=== PATIENT | male | born 1985 | race Two or more races ===

== ENCOUNTER 2017-10-26 12:53 | Emergency (ER) | payer SELFPAY ==
[~2017-10-26] VITALS: Ht 182.9 cm; Wt 93.0 kg
[2017-10-26 13:00] VITALS: BP 168/98
[2017-10-26] MEDS ORDERED: KETOROLAC TROMETH 60MG/2ML VIAL IM ONE (16:00)
[2017-10-26] MEDS ORDERED: TETANUS-DIPTH-ACEL PERTUSSIS 0.5ML SYRG IM ONE (16:00)
[2017-10-26] MEDS ORDERED: BACITRACIN TOP OINT 1 UD PKG TOP ONE (16:45)
== END 2017-10-26 17:18 | disposition home or self-care (01) ==
LOC: ER 12:53
DX: S61.011A Laceration without foreign body of right thumb without damage to nail, initial encounter (principal); W54.0XXA Bitten by dog, initial encounter; Y93.89 Activity, other specified; Y92.89 Other specified places as the place of occurrence of the external cause; Y99.8 Other external cause status
CPT/HCPCS: 12004; 90471; 90715; 96372; 99284; J1885